=== PATIENT | female | born 1975 | race Caucasian/White ===

== ENCOUNTER 2018-02-25 14:14 | Inpatient (IN) ==
--- NOTE | 2018-02-25 14:32 | Emergency Department Note ---
Disposition Clinical Impression: Suicidal ideation, History of anxiety, History of depression, History of schizoaffective disorder Disposition: Admitted As Inpatient Condition: Good Time of Disposition: 15:49 (Admitted to 1A) Psych HPI - General Chief Complaint: UC Psych Stated Complaint: SI Time Seen by Provider: 02/25/18 14:14 Source: patient, EMS Mode of arrival: ambulatory Limitations: no limitations Nursing Notes Reviewed: Yes Vital Signs Reviewed: Yes - History of Present Illness HPI Narrative: Patient is a 42-year-old female with past medical history of COPD, CHF, obesity , asthma, anxiety, depression, schizoaffective disorder. She is currently taking BuSpar 50 mg 3 times a day, Valium 5 mg 3 times a day, Prozac 80 mg daily , Wellbutrin 150 twice daily, Topamax 50 mg once in the morning and and 2 tablets at night, Geodon 80 mg twice daily, lisinopril 10 mg daily. She used to be on lithium but states that she was taken off this a while ago. She presents today via EMS due to concern for suicidal ideation with a plan to overdose on her medications and/or cut herself. She does have a history of multiple admissions in the past due to suicidal ideation. She was sent from psychiatrist office, Dr. Recio. She came with a pink slip signed, statement of believe was "patient has worsening depressive symptoms not caring for self, reports planned to overdose on anxiety meds" this was signed on 02/25/18 at 1: 28pm the patient also admits to a generalized headache that she believes is due to her blood pressure being a little high. She denies any other numbness, tingling, weakness, slurring of speech, facial droop, chest pain, shortness breath, nausea, vomiting, fevers, diarrhea, abdominal pain. She does state that she has headaches occasionally when her blood pressure is high. Denies any other homicidal ideation, visual or auditory hallucinations, actual taking of any large amounts of medications, overdosing on any other drugs like Tylenol , aspirin; denies any ingestions of any illicit drugs, any actual self-harm prior to coming in. - Related Data Home Medications Medication Instructions Recorded Confirmed BuPROPion SR (12 HR) [Wellbutrin 300 mg PO DAILY 02/22/16 02/25/18 SR] FLUoxetine HCl [Prozac] 80 mg PO DAILY 02/22/16 02/25/18 diazePAM [Valium] 5 mg PO TID PRN 01/06/18 02/25/18 Buspirone HCl [Buspar] 15 mg PO TID 02/25/18 02/25/18 Doxepin [Sinequan] 25 - 50 mg PO HS 02/25/18 02/25/18 Pantoprazole Sodium [Protonix] 40 mg PO DAILY 02/25/18 02/25/18 Ziprasidone HCl [Geodon] 80 mg PO BID 02/25/18 02/25/18 amLODIPine [Norvasc] 5 mg PO DAILY 02/25/18 02/25/18 carBAMazepine [Tegretol] 200 mg PO BID 02/25/18 02/25/18 Allergies Allergy/AdvReac Type Severity Reaction Status Date / Time Amoxicillin [From Augmentin] AdvReac Hives Verified 02/25/18 14:42 clavulanic acid AdvReac Hives Verified 02/25/18 14:42 NSAIDS (Non-Steroidal AdvReac See Verified 02/25/18 14:42 Anti-Inflamma Comments beta-lactam Allergy See Uncoded 02/25/18 14:42 Comments All systems ED: reviewed and negative except as stated. Constitutional: Denies: fever Cardiovascular: Denies: chest pain Respiratory: Denies: cough, dyspnea, sputum production Gastrointestinal: Denies: abdominal pain, nausea, vomiting, diarrhea Genitourinary: Denies: urgency, dysuria Integumentary: Denies: rash Neurological: Reports: headache. Denies: weakness, numbness, paresthesias Psychiatric: Reports: anxiety, depression, suicidal thoughts. Denies: homicidal thoughts, auditory hallucinations, visual hallucinations Past Medical History - Past Medical History Attestation: Yes The following information was validated with the patient. 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 - Social History Smoking Status: Never smoker Smokeless Tobacco Status: Yes (vape) Alcohol use: Reports: none Drug use: Reports: none Physical Exam - General Limitations: no limitations General appearance: alert, in no apparent distress - Head Head exam: atraumatic, normocephalic, normal inspection - Eye Eye exam: Present: normal appearance, PERRL, EOMI - ENT ENT exam: normal exam, normal oropharynx, mucous membranes moist - Neck Neck exam: Present: normal inspection, full ROM, trachea midline - Chest Chest inspection: Present: normal inspection, symmetric chest wall rise - Respiratory Respiratory exam: Present: normal lung sounds bilaterally - Cardiovascular Cardiovascular exam: Present: regular rate, normal rhythm, normal heart sounds - Abdominal Exam Abdominal exam: Present: soft, Non-Tender. Absent: tenderness, distention, guarding, rebound, rigidity - Extremities Exam Extremities exam: Present: normal inspection, full ROM. Absent: tenderness, pedal edema - Neurological Exam Neurological exam: Present: alert, oriented X3, CN II-XII intact. Absent: motor sensory deficit - Expanded Neurological Exam Patient oriented to: Present: person, place, time Speech: Present: fluid speech Cranial nerves: EOM function (II, III, IV, ): Normal, facial sensation (V): Normal, facial palsy (VII): Normal, spinal accessory function (XI): Normal, tongue deviation (XII): Normal Cerebellar function: finger to nose: Normal Motor strength - LUE: 5/5 Motor strength - RUE: 5/5 Motor strength - LLE: 5/5 Motor strength - RLE: 5/5 Sensory exam upper extremity: light touch: Normal Sensory exam lower extremity: light touch: Normal Coma Scale Eye Opening: Spontaneous Coma Scale Motor Response: Obeys Commands Coma Scale Verbal Response: Oriented Coma Scale Total: 15 - Psychiatric Psychiatric exam: Present: depressed, anxious, flat affect - Skin Skin exam: Present: warm, dry, intact, normal color Course Course Narrative: Patient mildly hypertensive on presentation with systolic in the 150s. No focal neuro deficits. The rest of the exam is fairly benign. Patient does have active suicidal thoughts with a plan. She really has a pink slip signed and on the chart by her psychiatrist Dr. Recio. She will be assigned a sitter. Medical clearance labs ordered. After this, will consult behavioral health for further evaluation. 15:47 no major lab abnormalities. Urine drug screen was positive for benzos and barbiturates. Patient is not currently prescribed for barbiturate. Otherwise, the rest of the labs were not concerning. I talked with behavioral health, they were already aware of the patient and will directly admit her without evaluation due to the patient coming directly from psychiatrist office. Vital Signs Pulse Rate 59 02/25/18 14:42 Respiratory Rate 20 02/25/18 14:42 Blood Pressure 167/106 02/25/18 14:42 O2 Sat by Pulse Oximetry 98 02/25/18 14:42 Temperature 98.5 F 02/25/18 14:46 Pulse Rate 59 02/25/18 14:46 Respiratory Rate 20 02/25/18 14:46 Blood Pressure 167/106 02/25/18 14:46 O2 Sat by Pulse Oximetry 98 02/25/18 14:46 Oxygen Delivery Oxygen Delivery Room Air Psych - MDM Narrative Medical decision making narrative: Patient mildly hypertensive on presentation with systolic in the 150s. No focal neuro deficits. The rest of the exam is fairly benign. Patient does have active suicidal thoughts with a plan. She really has a pink slip signed and on the chart by her psychiatrist Dr. Recio. She will be assigned a sitter. Medical clearance labs ordered. After this, will consult behavioral health for further evaluation. 15:47 no major lab abnormalities. Urine drug screen was positive for benzos and barbiturates. Patient is not currently prescribed for barbiturate. Otherwise, the rest of the labs were not concerning. I talked with behavioral health, they were already aware of the patient and will directly admit her without evaluation due to the patient coming directly from psychiatrist office. - Lab Data Result diagrams: 02/25/18 14:59 02/25/18 14:59 Lab Results 02/25/18 02/25/18 02/25/18 Range/Units 14:42 14:45 14:59 WBC 5.3 (4.3-11.1) K/mcL RBC 3.89 (3.82-4.97) M/mcL Hgb 11.8 (11.5-15.4) g/dL Hct 34.3 L (35.3-44.9) % MCV 88.2 (83.0-100.0) fL MCH 30.3 (28.0-33.3) pg MCHC 34.4 (31.6-35.5) g/dL RDW 13.2 (11.5-14.5) % Plt Count 201 (140-400) K/mcL MPV 9.9 (9.4-12.4) fL Immature Gran % 0.2 (0-4) % Seg Neutrophils % 69.9 % Lymphocytes % 24.2 % Monocytes % 5.5 % Eosinophils % 0.0 % Basophils % 0.2 % Neutrophils # 3.7 (1.6-8.9) K/mcL Lymphocytes # 1.3 (0.6-4.6) K/mcL Monocytes # 0.3 (0.0-1.3) K/mcL Eosinophils # 0.0 (0.0-0.6) K/mcL Basophils # 0.0 (0.0-0.2) K/mcL Sodium (136-145) mEq/L Potassium (3.5-5.1) mEq/L Chloride (98-107) mEq/L Carbon Dioxide (23-29) mEq/L BUN (6-20) mg/dL Creatinine (0.60-1.20) mg/dL Est GFR ( Amer) (> 60) Est GFR (Non-Af Amer) (> 60) BUN/Creatinine Ratio (6-26) Glucose (70-105) mg/dL Calculated Osmolality (280-300) Calcium (8.6-10.3) mg/dL Urine Color Yellow (Yellow) Urine Clarity Clear (Clear) Urine pH 6.5 (5.0-8.0) pH Units Ur Specific [place] 1.009 L (1.010-1.025) Urine Protein Negative (Neg-Trace) mg/dL Urine Glucose (UA) Normal (Normal) mg/dL Urine Ketones Negative (Negative) mg/dL Urine Blood Negative (Negative) Urine Nitrite Negative (Negative) Urine Bilirubin Negative (Negative) Urine Urobilinogen Normal (Normal) mg/dL Ur Leukocyte Esterase Negative (Negative) Salicylates (15.0-30.0) mg/dL Urine Opiates Screen Negative (Vhneyk=845) ng/mL Acetaminophen (10-20) mcg/mL Ur Barbiturates Screen Positive H (Smrahq=013) ng/mL Ur Phencyclidine Scrn Negative (Cutoff=25) ng/mL Ur Amphetamines Screen Negative (Akczhp=3917) ng/mL U Benzodiazepines Scrn Positive H (Glvcpb=902) ng/mL Urine Cocaine Screen Negative (Cutoff= 300) ng/mL U Marijuana (THC) Screen Negative (Cutoff = 50) ng/mL Ur Drug Screen Interp See Below Ethyl Alcohol (Less than 10) mg/dL 02/25/18 Range/Units 14:59 WBC (4.3-11.1) K/mcL RBC (3.82-4.97) M/mcL Hgb (11.5-15.4) g/dL Hct (35.3-44.9) % MCV (83.0-100.0) fL MCH (28.0-33.3) pg MCHC (31.6-35.5) g/dL RDW (11.5-14.5) % Plt Count (140-400) K/mcL MPV (9.4-12.4) fL Immature Gran % (0-4) % Seg Neutrophils % % Lymphocytes % % Monocytes % % Eosinophils % % Basophils % % Neutrophils # (1.6-8.9) K/mcL Lymphocytes # (0.6-4.6) K/mcL Monocytes # (0.0-1.3) K/mcL Eosinophils # (0.0-0.6) K/mcL Basophils # (0.0-0.2) K/mcL Sodium 137 (136-145) mEq/L Potassium 4.0 (3.5-5.1) mEq/L Chloride 104 (98-107) mEq/L Carbon Dioxide 29 (23-29) mEq/L BUN 10 (6-20) mg/dL Creatinine 1.03 (0.60-1.20) mg/dL Est GFR ( Amer) > 60 (> 60) Est GFR (Non-Af Amer) 59 L (> 60) BUN/Creatinine Ratio 10 (6-26) Glucose 110 H (70-105) mg/dL Calculated Osmolality 284 (280-300) Calcium 9.1 (8.6-10.3) mg/dL Urine Color (Yellow) Urine Clarity (Clear) Urine pH (5.0-8.0) pH Units Ur Specific [place] (1.010-1.025) Urine Protein (Neg-Trace) mg/dL Urine Glucose (UA) (Normal) mg/dL Urine Ketones (Negative) mg/dL Urine Blood (Negative) Urine Nitrite (Negative) Urine Bilirubin (Negative) Urine Urobilinogen (Normal) mg/dL Ur Leukocyte Esterase (Negative) Salicylates < 2.5 L (15.0-30.0) mg/dL Urine Opiates Screen (Jtqctl=486) ng/mL Acetaminophen < 10 L (10-20) mcg/mL Ur Barbiturates Screen (Jfeoay=651) ng/mL Ur Phencyclidine Scrn (Cutoff=25) ng/mL Ur Amphetamines Screen (Vtliro=9112) ng/mL U Benzodiazepines Scrn (Fyuogo=905) ng/mL Urine Cocaine Screen (Cutoff= 300) ng/mL U Marijuana (THC) Screen (Cutoff = 50) ng/mL Ur Drug Screen Interp Ethyl Alcohol < 10 (Less than 10) mg/dL Psychiatric Medical Clearance - Medical Clearance Checklist Medical History: No Social History Section defined Current Vitals: Last Vital Signs Temp 98.5 F 02/25/18 14:46 Pulse 59 02/25/18 14:46 Resp 20 02/25/18 14:46 BP 167/106 02/25/18 14:46 Pulse Ox 98 02/25/18 14:46 Psychiatric Lab Panel: Drug Levels and Toxicity 02/25/18 02/25/18 14:45 14:59 Urine Opiates Screen Negative Acetaminophen < 10 L Ur Barbiturates Screen Positive H Ur Phencyclidine Scrn Negative Ur Amphetamines Screen Negative U Benzodiazepines Scrn Positive H Urine Cocaine Screen Negative U Marijuana (THC) Screen Negative Ethyl Alcohol < 10 Abnormal Labs: Abnormal lab results Hct 34.3 % (35.3-44.9) L 02/25/18 14:59 Est GFR (Non-Af Amer) 59 (> 60) L 02/25/18 14:59 Glucose 110 mg/dL (70-105) H 02/25/18 14:59 Ur Specific [place] 1.009 (1.010-1.025) L 02/25/18 14:42 Salicylates < 2.5 mg/dL (15.0-30.0) L 02/25/18 14:59 Acetaminophen < 10 mcg/mL (10-20) L 02/25/18 14:59 Ur Barbiturates Screen Positive ng/mL (Obulcq=064) H 02/25/18 14:45 U Benzodiazepines Scrn Positive ng/mL (Wdtugs=452) H 02/25/18 14:45 Attestation Statement - Attestation Attestation: I examined this patient and my medical decision-making was reviewed with the Resident Physician. I agree with the documented findings, disposition and treatment plan as described except to the extent set forth below. Findings consistent with ongoing depression and possible suicidality. We will admit for psychiatric consultation. The patient was a direct admission other referral psychiatry.
[2018-02-25 14:51] LABS: Bilirubin,Urine Negative (Negative); Blood,Urine Negative (Negative); Clarity,Urine Clear (Clear); Color,Urine Yellow (Yellow); Glucose,Urine (UA) Normal (Normal); Ketones,Urine Negative (Negative); Leukocyte Esterase,Urine Negative (Negative); Nitrite,Urine Negative (Negative); PH,Urine 6.5 pH Units (5.0-8.0); Protein,Urine Negative (Neg-Trace); Specific Gravity,Urine 1.009 (1.010-1.025); Urobilinogen,Urine Normal (Normal)
[2018-02-25 15:01] LABS: Amphetamine Screen,Urine Negative ng/mL (Cutoff=1000); Barbiturate Screen,Urine Positive ng/mL (Cutoff=200); Benzodiazepines Screen,Urine Positive ng/mL (Cutoff=200); Cannabinoid Screen,Urine Negative ng/mL (Cutoff = 50); Cocaine Screen,Urine Negative ng/mL (Cutoff= 300); Opiate Screen,Urine Negative ng/mL (Cutoff=300); Phencyclidine Screen,Urine Negative ng/mL (Cutoff=25)
[2018-02-25 15:16] LABS: Basophils % 0.2 %; Hematocrit 34.3 % (35.3-44.9); Hemoglobin 11.8 g/dL (11.5-15.4); Immature Granulocytes % 0.2 % (0-4); Lymphocytes # 1.3 K/mcL (0.6-4.6); Lymphocytes % 24.2 %; Mean Corpuscular HGB Conc 34.4 g/dL (31.6-35.5); Mean Corpuscular Hemoglobin 30.3 pg (28.0-33.3); Mean Corpuscular Volume 88.2 fL (83.0-100.0); Mean Platelet Volume 9.9 fL (9.4-12.4); Monocytes # 0.3 K/mcL (0.0-1.3); Monocytes % 5.5 %; Neutrophils # 3.7 K/mcL (1.6-8.9); Platelet Count 201 K/mcL (140-400); Red Blood Count 3.89 M/mcL (3.82-4.97); Red Cell Distribution Width 13.2 % (11.5-14.5); Segmented Neutrophils % 69.9 %
[2018-02-25 15:40] LABS: Acetaminophen < 10 mcg/mL (10-20); BUN/Creatinine Ratio 10 (6-26); Blood Urea Nitrogen 10 mg/dL (6-20); Calcium 9.1 mg/dL (8.6-10.3); Carbon Dioxide 29 mEq/L (23-29); Chloride 104 mEq/L (98-107); Ethanol < 10 mg/dL (Less than 10); Glucose 110 mg/dL (70-105); Osmolality,Calculated 284 (280-300); Salicylate < 2.5 mg/dL (15.0-30.0); Sodium 137 mEq/L (136-145); eGFR For Non-African Americans 59 (> 60)
[2018-02-25] MEDS ORDERED: Haloperidol Lactate 5 MG/ML VIAL IM PRN (17:27)
[2018-02-25] MEDS ORDERED: Mag Hydrox/Al Hydrox/Simeth 30 ML UDC PO PRN (17:27)
[2018-02-25] MEDS ORDERED: MOM Conc 10 ML UD.LIQ PO PRN (17:27)
[2018-02-25] MEDS ORDERED: *HR* LORazepam 2 MG/ML VIAL IM PRN (17:27)
[2018-02-25] MEDS ORDERED: *HR* LORazepam 1 MG TABLET PO PRN (17:27)
[2018-02-25] MEDS ORDERED: diazePAM 5 MG TABLET PO PRN (17:31)
[2018-02-25] MEDS: Acetaminophen 325 MG TABLET PO PRN (20:59)
[2018-02-25] MEDS: Ziprasidone 80 MG CAPSULE PO SCH (21:01)
[2018-02-25] MEDS: traZODone 50 MG TABLET PO PRN (21:04)
[2018-02-25] MEDS: carBAMazepine 200 MG TABLET PO SCH (21:14)
[2018-02-26] MEDS: Ziprasidone 80 MG CAPSULE PO SCH ×2 (08:30→21:36)
[2018-02-26] MEDS: amLODIPine 5 MG TABLET PO SCH (08:30)
[2018-02-26] MEDS: Nicotine 7 MG PATCH.TD24 TD SCH (08:31)
[2018-02-26] MEDS: carBAMazepine 200 MG TABLET PO SCH ×2 (08:33→21:37)
[2018-02-26] MEDS ORDERED: BuPROPion SR (12 HR) 150 MG TABLET PO SCH (09:00)
[2018-02-26] MEDS ORDERED: FLUoxetine 20 MG CAPSULE PO SCH (09:00)
[2018-02-26] MEDS: hydrOXYzine pamoate 25 MG CAPSULE PO PRN ×2 (09:01→21:55)
--- NOTE | 2018-02-26 11:59 | Psychiatry History & Physical ---
Date of Encounter: 02/26/18 Time of Encounter: 11:45 History of Present Illness Patient Stated Chief Complaint: Suicidal ideation Medicare Admission Attestation: For traditional Medicare patients the provided hospital inpatient services are reasonable and necessary and in the case of services not specified as inpatient -only under 42 CFR 419.22 (n), that they are appropriately provided as inpatient services in accordance 42 CFR 412.3. For Critical Access Hospital the patient may reasonably be expected to be discharged or transferred to a hospital within 96 hours after admission to the Critical Access Hospital. Admitted From: Emergency Dept History of Present Illness: Ms. Palma is a 42 year old female admitted from the emergency department for evaluation of suicidal ideation. Patient was referred for admission by Dr. De Jesus reported patient is having worsening depression and suicidal ideation had a long history of schizoaffective disorder bipolar type multiple medication recently had multiple changes to her medication including trial of lithium that could not be given due to kidney function. Patient also was given Tegretol and she did not tolerated. Patient is on polypharmacy and has been having hypersomnia low energy depressed mood lack of energy and poor motivation. 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 Patient admits to smoking cigarettes and consuming large amounts of caffeine denies any use of alcohol or drugs. Patient complained of mood swings irritability. Past Med Surg Social Fam HX - Past Medical History Medical history: non-contributory - Past Psychiatric History Psychiatric history: Reports: bipolar, depression, prior suicide attempt, previous psychiatric hospitalization Past psychiatric history details: Multiple hospitalizations at [facility] 1 a - Past Surgical History Surgical History: cholecystectomy, knee replacement - Social History Smoking Status: Never smoker Smokeless Tobacco Status: Yes (vape) Alcohol use: none Drug use: none - Family History Maternal Grandmother Living Status: Hx Family Cardiac Disorders: Yes Medications & Allergies BuPROPion SR (12 HR) [Wellbutrin SR] 300 mg PO DAILY 02/22/16 [History] FLUoxetine HCl [Prozac] 80 mg PO DAILY 02/22/16 [History] diazePAM [Valium] 5 mg PO TID PRN 01/06/18 [History] Buspirone HCl [Buspar] 15 mg PO TID 02/25/18 [History] Doxepin [Sinequan] 25 - 50 mg PO HS 02/25/18 [History] Pantoprazole Sodium [Protonix] 40 mg PO DAILY 02/25/18 [History] Ziprasidone HCl [Geodon] 80 mg PO BID 02/25/18 [History] amLODIPine [Norvasc] 5 mg PO DAILY 02/25/18 [History] carBAMazepine [Tegretol] 200 mg PO BID 02/25/18 [History] 3 Allergy/AdvReac Type Severity Reaction Status Date / Time Amoxicillin [From Augmentin] AdvReac Hives Verified 02/25/18 14:42 clavulanic acid AdvReac Hives Verified 02/25/18 14:42 NSAIDS (Non-Steroidal AdvReac See Verified 02/25/18 14:42 Anti-Inflamma Comments beta-lactam Allergy See Uncoded 02/25/18 14:42 Comments Review of Systems Psychiatric: Reports: depression, anxiety, abnormal sleep pattern, suicidal ideation, hopelessness, mood swings Exam - HEENT Head exam IM: Present: atraumatic Eye exam IM: Present: EOMI, normal appearance, PERRL ENT exam IM: Present: normal exam - Neurological Neurological exam: Present: CN II-XII intact - Respiratory Respiratory exam IM: Present: CTAB - GI/Abdominal GI/Abdominal exam IM: Present: normal bowel sounds, soft. Absent: tenderness - Extremities Extremities exam IM: Present: full ROM - Skin Skin exam IM: Present: dry, warm - Constitutional Vitals: Temp Pulse Resp BP Pulse Ox 98.8 F 99 16 143/94 98 02/26/18 09:00 02/26/18 09:00 02/26/18 09:00 02/26/18 09:00 02/25/18 14:46 General appearance: age & developmentally appropriate, well-groomed, well- nourished, obese - Musculoskeletal Gait: normal Station: relaxed Strength & Tone: normal for patient - Psychiatric Patient Orientation: Yes Person, Yes Time, Yes Place Level of alertness: Alert Behavior: calm, cooperative, guarded Psychomotor activity: Normal Eye Contact: Maintains Eye Contact Mood Description: Euthymic/stable, Depressed, Anxious Affect description: congruent with mood, full range, constricted Speech Volume: Normal Speech pattern: normal rate, normal rhythm, normal tone, fluent, spontaneous Language & Vocabulary: consistent with education Thought Process: Linear, Goal Oriented Thought Content: Yes Suicidal ideation, No Homicidal ideation, No Overt delusions Perceptual Disturbances: No Auditory hallucinations, No Visual hallucinations Attention Span Ability: Capable of Focused Attention Memory Description: Grossly Intact Patient Reliability: Reliable Historian Fund of knowledge: Yes abstraction ability, Yes average, Yes aware of current events Intelligence Estimate: Average Judgment: Limited Insight: Partial Results - Labs Labs: Laboratory Last Values WBC 5.3 K/mcL (4.3-11.1) 02/25/18 14:59 RBC 3.89 M/mcL (3.82-4.97) 02/25/18 14:59 Hgb 11.8 g/dL (11.5-15.4) 02/25/18 14:59 Hct 34.3 % (35.3-44.9) L 02/25/18 14:59 MCV 88.2 fL (83.0-100.0) 02/25/18 14:59 MCH 30.3 pg (28.0-33.3) 02/25/18 14:59 MCHC 34.4 g/dL (31.6-35.5) 02/25/18 14:59 RDW 13.2 % (11.5-14.5) 02/25/18 14:59 Plt Count 201 K/mcL (140-400) 02/25/18 14:59 MPV 9.9 fL (9.4-12.4) 02/25/18 14:59 Immature Gran % 0.2 % (0-4) 02/25/18 14:59 Seg Neutrophils % 69.9 % 02/25/18 14:59 Lymphocytes % 24.2 % 02/25/18 14:59 Monocytes % 5.5 % 02/25/18 14:59 Eosinophils % 0.0 % 02/25/18 14:59 Basophils % 0.2 % 02/25/18 14:59 Neutrophils # 3.7 K/mcL (1.6-8.9) 02/25/18 14:59 Lymphocytes # 1.3 K/mcL (0.6-4.6) 02/25/18 14:59 Monocytes # 0.3 K/mcL (0.0-1.3) 02/25/18 14:59 Eosinophils # 0.0 K/mcL (0.0-0.6) 02/25/18 14:59 Basophils # 0.0 K/mcL (0.0-0.2) 02/25/18 14:59 Sodium 137 mEq/L (136-145) 02/25/18 14:59 Potassium 4.0 mEq/L (3.5-5.1) 02/25/18 14:59 Chloride 104 mEq/L (98-107) 02/25/18 14:59 Carbon Dioxide 29 mEq/L (23-29) 02/25/18 14:59 BUN 10 mg/dL (6-20) 02/25/18 14:59 Creatinine 1.03 mg/dL (0.60-1.20) 02/25/18 14:59 Est GFR ( Amer) > 60 (> 60) 02/25/18 14:59 Est GFR (Non-Af Amer) 59 (> 60) L 02/25/18 14:59 BUN/Creatinine Ratio 10 (6-26) 02/25/18 14:59 Glucose 110 mg/dL (70-105) H 02/25/18 14:59 Calculated Osmolality 284 (280-300) 02/25/18 14:59 Calcium 9.1 mg/dL (8.6-10.3) 02/25/18 14:59 Urine Color Yellow (Yellow) 02/25/18 14:42 Urine Clarity Clear (Clear) 02/25/18 14:42 Urine pH 6.5 pH Units (5.0-8.0) 02/25/18 14:42 Ur Specific [place] 1.009 (1.010-1.025) L 02/25/18 14:42 Urine Protein Negative mg/dL (Neg-Trace) 02/25/18 14:42 Urine Glucose (UA) Normal mg/dL (Normal) 02/25/18 14:42 Urine Ketones Negative mg/dL (Negative) 02/25/18 14:42 Urine Blood Negative (Negative) 02/25/18 14:42 Urine Nitrite Negative (Negative) 02/25/18 14:42 Urine Bilirubin Negative (Negative) 02/25/18 14:42 Urine Urobilinogen Normal mg/dL (Normal) 02/25/18 14:42 Ur Leukocyte Esterase Negative (Negative) 02/25/18 14:42 Salicylates < 2.5 mg/dL (15.0-30.0) L 02/25/18 14:59 Urine Opiates Screen Negative ng/mL (Ushcvz=050) 02/25/18 14:45 Acetaminophen < 10 mcg/mL (10-20) L 02/25/18 14:59 Ur Barbiturates Screen Positive ng/mL (Ysleoz=927) H 02/25/18 14:45 Ur Phencyclidine Scrn Negative ng/mL (Cutoff=25) 02/25/18 14:45 Ur Amphetamines Screen Negative ng/mL (Hmmhgc=6794) 02/25/18 14:45 U Benzodiazepines Scrn Positive ng/mL (Jsauto=669) H 02/25/18 14:45 Urine Cocaine Screen Negative ng/mL (Cutoff= 300) 02/25/18 14:45 U Marijuana (THC) Screen Negative ng/mL (Cutoff = 50) 02/25/18 14:45 Ur Drug Screen Interp See Below 02/25/18 14:45 Ethyl Alcohol < 10 mg/dL (Less than 10) 02/25/18 14:59 Assessment and Plan (1) Schizoaffective disorder, bipolar type Current visit: Yes Status: Acute Plan: Admit inpatient for safety and stabilization, Close observation, Suicide Precautions per unit protocol, Encourage participation in unit milieu, Group Therapy, Monitor sleep, Monitor appetite Additional Plan: Please see orders for medication changes. We will add Cymbalta 60 mg daily, will reduce Prozac to 40 mg daily will reduce Wellbutrin to 150 mg daily. Will change Valium and doxepin to when necessary Medication changes discussed was a patient and she is agreeable to treatment plan and we will continue to monitor. Risks, benefits, side effects, alternatives discussed w/pt: Yes Patient agreeable to treatment: Yes Estimated Length of Stay (Days): 7
[2018-02-26 12:46] LABS: Thyroid Stimulating Hormone 1.453 mcIU/mL (0.340-5.600)
[2018-02-26] MEDS: traZODone 50 MG TABLET PO PRN (21:55)
[2018-02-27] MEDS: amLODIPine 5 MG TABLET PO SCH (09:32)
[2018-02-27] MEDS: carBAMazepine 200 MG TABLET PO SCH (09:33)
[2018-02-27] MEDS: FLUoxetine 20 MG CAPSULE PO SCH (09:33)
[2018-02-27] MEDS: Ziprasidone 80 MG CAPSULE PO SCH ×2 (09:34→20:55)
[2018-02-27] MEDS: Nicotine 7 MG PATCH.TD24 TD SCH (09:34)
[2018-02-27] MEDS: BuPROPion SR (12 HR) 150 MG TABLET PO SCH (09:34)
--- NOTE | 2018-02-27 15:49 | Psychiatry Progress Note ---
Date of Encounter: 02/27/18 Time of Encounter: 13:30 Subjective Interval history: Patient seen for follow-up. Case discussed was nursing staff. Patient reports improved sleep and more, she feel less depressed and less anxious. She feels happier. Denied any side effects of medication changes. She denies suicidal ideation. She was educated about medication choices and interactions. Review of Systems Psychiatric: Reports: depression, anxiety, abnormal sleep pattern, suicidal ideation, hopelessness, mood swings Results - Vital Signs Vital Signs: Temp Pulse Resp BP Pulse Ox 97.1 F L 96 18 140/108 98 02/27/18 09:00 02/27/18 09:00 02/27/18 09:00 02/27/18 09:00 02/25/18 14:46 Assessment and Plan (1) Schizoaffective disorder, bipolar type Current visit: Yes Status: Acute Plan: Continue hospitalization, Close observation, Suicide Precautions per unit protocol, Encourage participation in unit milieu, Group Therapy, Monitor sleep, Monitor appetite Risks, benefits, side effects, alternatives discussed w/pt: Yes Patient agreeable to treatment: Yes Consult Discharge Plan - Plan Referrals: [facility] [Outside] - 03/10/18 10:20 am (The above appointment is with Dr. Recio for outpatient psychiatric assessment and medication management services. You will also see Glenda Vail for outpatient mental health counseling services on 03/11/2018 at 10:00 AM. Please arrive 10 minutes early to all appointments to complete the check-in process. Please bring your insurance card and photo ID. If you are unable to keep any scheduled appointment, 24 hour business notice of cancellation is expected. The above appointment(s) reflects first availability. You may contact the office regularly to check for cancellations that may allow you to be seen sooner. ) Psychiatry Exam - Constitutional Vitals: Temp Pulse Resp BP Pulse Ox 97.1 F L 96 18 140/108 98 02/27/18 09:00 02/27/18 09:00 02/27/18 09:00 02/27/18 09:00 02/25/18 14:46 General appearance: age & developmentally appropriate, well-groomed, well- nourished, obese - Musculoskeletal Gait: normal Station: relaxed Strength & Tone: normal for patient - Psychiatric Patient Orientation: Yes Person, Yes Time, Yes Place Level of alertness: Alert Behavior: calm, cooperative Psychomotor activity: Normal Eye Contact: Maintains Eye Contact Mood Description: Euthymic/stable Affect description: congruent with mood, full range, euthymic Speech Volume: Normal Speech pattern: normal rate, normal rhythm, normal tone, fluent, spontaneous Language & Vocabulary: consistent with education Thought Process: Linear, Goal Oriented Thought Content: No Suicidal ideation, No Homicidal ideation, No Overt delusions Perceptual Disturbances: No Auditory hallucinations, No Visual hallucinations Attention Span Ability: Capable of Focused Attention Memory Description: Grossly Intact Patient Reliability: Reliable Historian Fund of knowledge: Yes abstraction ability, Yes aware of current events Intelligence Estimate: Average Judgment: Limited Insight: Partial
[2018-02-27] MEDS: Acetaminophen 325 MG TABLET PO PRN ×2 (16:12→22:18)
[2018-02-27] MEDS: traZODone 50 MG TABLET PO PRN (20:55)
[2018-02-27] MEDS: hydrOXYzine pamoate 25 MG CAPSULE PO PRN (20:55)
[2018-02-28 08:39] VITALS: BP 128/98
[2018-02-28] MEDS: Ziprasidone 80 MG CAPSULE PO SCH (09:10)
[2018-02-28] MEDS: BuPROPion SR (12 HR) 150 MG TABLET PO SCH (09:11)
[2018-02-28] MEDS: amLODIPine 5 MG TABLET PO SCH (09:12)
[2018-02-28] MEDS: FLUoxetine 20 MG CAPSULE PO SCH (09:12)
[2018-02-28] MEDS: Nicotine 7 MG PATCH.TD24 TD SCH (09:40)
--- NOTE | 2018-02-28 10:22 | Discharge Summary ---
Date of Encounter: 02/28/18 Time of Encounter: 10:17 Diagnosis - Discharge Diagnosis (1) Schizoaffective disorder, bipolar type Status: Acute Medications - Discharge Medications Prescriptions: DULoxetine [Cymbalta] 60 mg PO DAILY #60 capsule. diazePAM [Valium] 5 mg PO TID PRN 01/06/18 [History] Buspirone HCl [Buspar] 15 mg PO TID 02/25/18 [History] Doxepin [Sinequan] 25 - 50 mg PO HS 02/25/18 [History] Pantoprazole Sodium [Protonix] 40 mg PO DAILY 02/25/18 [History] Ziprasidone HCl [Geodon] 80 mg PO BID 02/25/18 [History] amLODIPine [Norvasc] 5 mg PO DAILY 02/25/18 [History] BuPROPion SR (12 HR) [Wellbutrin SR] 150 mg PO DAILY tablet.er 02/28/18 [Rx] DULoxetine [Cymbalta] 60 mg PO DAILY #60 capsule. 02/28/18 [Rx] FLUoxetine HCl [Prozac] 40 mg PO DAILY capsule 02/28/18 [Rx] 3 Allergy/AdvReac Type Severity Reaction Status Date / Time Amoxicillin [From Augmentin] AdvReac Hives Verified 02/25/18 14:42 clavulanic acid AdvReac Hives Verified 02/25/18 14:42 NSAIDS (Non-Steroidal AdvReac See Verified 02/25/18 14:42 Anti-Inflamma Comments beta-lactam Allergy See Uncoded 02/25/18 14:42 Comments Provider Date of admission: 02/25/18 16:12 Primary care physician: PCP NONE Discharging clinician: Curt Hanson Psychiatry Exam - Constitutional Vitals: Temp Pulse Resp BP Pulse Ox 98.5 F 80 18 128/98 98 02/28/18 08:39 02/28/18 08:39 02/28/18 08:39 02/28/18 08:39 02/25/18 14:46 General appearance: age & developmentally appropriate, well-groomed, well- nourished, obese - Musculoskeletal Gait: normal Station: relaxed Strength & Tone: normal for patient - Psychiatric Patient Orientation: Yes Person, Yes Time, Yes Place Level of alertness: Alert Behavior: calm, cooperative Psychomotor activity: Normal Eye Contact: Maintains Eye Contact Mood Description: Euthymic/stable Affect description: congruent with mood, full range Speech Volume: Normal Speech pattern: normal rate, normal rhythm, normal tone, fluent, spontaneous Language & Vocabulary: consistent with education Thought Process: Linear, Goal Oriented Thought Content: No Suicidal ideation, No Homicidal ideation, No Overt delusions Perceptual Disturbances: No Auditory hallucinations, No Visual hallucinations Attention Span Ability: Capable of Focused Attention Memory Description: Grossly Intact Patient Reliability: Reliable Historian Fund of knowledge: Yes abstraction ability, Yes aware of current events Intelligence Estimate: Average Judgment: Limited Insight: Partial Hospital Course Hospital course: Ms. Palma is a 42 year old female admitted from the emergency department for suicidal ideation and poor adjustments of her medication for bipolar disorder. For details admission please see H&P On the units patient medication were reviewed and adjusted we reduced fluoxetine to 40 mg daily, we reduced Wellbutrin 150 mg daily and we added Cymbalta 60 mg daily and we discontinued carbamazepine. Patient tolerated medication changes and reported feeling less depressed her sleep improved she was feeling more energized she attended groups and participated in activities she was medication compliant and denied any side effects of medication. And she denied any suicidal ideation or mood swings. Discharge plans by social service agency director confirmed patient follow-up appointments. On discharge patient was medically stable tolerating medication was out any side effects denied any suicidal ideation or mood swings. She is discharged in stable condition. - Time Spent with Patient Total time spent providing and/or coordinating discharge services: Greater than 30 minutes Assessment and Plan - Patient/Caregiver Discharge Instructions Activity: resume usual activities as tolerated Diet: regular diet - Follow up Plan Follow up with: [facility] [Outside] - 03/10/18 10:20 am (The above appointment is with Dr. Recio for outpatient psychiatric assessment and medication management services. You will also see Glenda Vail for outpatient mental health counseling services on 03/11/2018 at 10:00 AM. Please arrive 10 minutes early to all appointments to complete the check-in process. Please bring your insurance card and photo ID. If you are unable to keep any scheduled appointment, 24 hour business notice of cancellation is expected. The above appointment(s) reflects first availability. You may contact the office regularly to check for cancellations that may allow you to be seen sooner. ) Functional capacity at discharge: independent ambulation Overall status at discharge: Stable Disposition: Home, Self-Care Quality - Multiple Antipsychotics Patient discharged on 2 or more antipsychotic medications: No Procedures - Procedures Procedures: Medication Management, Crisis Stabilization, Supportive Therapy, Group Therapy, Psychoeducational Therapy
== END 2018-02-28 11:58 | disposition home or self-care (01) | DRG 885 ==
LOC: EMEROOARM 14:14 → 1ANU 16:12
PROVIDERS: ADMIT Psychiatry & Neurology Psychiatry; ATTEND Psychiatry & Neurology Psychiatry

== ENCOUNTER 2019-07-10 21:04 | Observation (INO) ==
[2019-07-10] MEDS ORDERED: Isovue-370 500 ML BOTTLE IVP ONE (21:21)
[2019-07-10] MEDS ORDERED: *HR* FentaNYL (PF) 100 MCG/2 ML VIAL IVP ONE (21:24)
[2019-07-10] MEDS ORDERED: Ondansetron 4 MG/2 ML VIAL IVP ONE (21:27)
[2019-07-10 21:35] LABS: Bilirubin,Urine Negative (Negative); Blood,Urine Negative (Negative); Clarity,Urine Cloudy (Clear); Color,Urine Yellow (Yellow); Glucose,Urine (UA) Normal (Normal); Ketones,Urine Negative (Negative); Leukocyte Esterase,Urine Large (Negative); Nitrite,Urine Negative (Negative); Protein,Urine Negative (Neg-Trace); Specific Gravity,Urine 1.009 (1.010-1.025); Urobilinogen,Urine Normal (Normal)
[2019-07-10 21:36] LABS: Bacteria,Urine Few per hpf (None-Few); Hyaline Casts,Urine None Seen per lpf (None-Few); RBC,Urine 0-3 per hpf (0-3); Squamous Epithelial Cell,Urine Many per lpf (None-Few); WBC,Urine 30-50 per hpf (0-3)
[2019-07-10 21:56] LABS: Hematocrit 37.1 % (35.3-44.9); Hemoglobin 12.9 g/dL (11.5-15.4); Mean Corpuscular HGB Conc 34.8 g/dL (31.6-35.5); Mean Corpuscular Hemoglobin 31.5 pg (28.0-33.3); Mean Corpuscular Volume 90.7 fL (83.0-100.0); Mean Platelet Volume 10.5 fL (9.4-12.4); Platelet Count 201 K/mcL (140-400); Red Blood Count 4.09 M/mcL (3.82-4.97); White Blood Count 8.5 K/mcL (4.3-11.1)
[2019-07-10 22:18] LABS: Alanine Aminotransferase 14 Units/L (7-52); Albumin 3.7 g/dL (3.5-5.7); Albumin/Globulin Ratio 1.7 (1.1-2.2); Alkaline Phosphatase 71 Units/L (34-104); Aspartate Amino Transferase 13 Units/L (13-39); BUN/Creatinine Ratio 12 (6-26); Bilirubin,Total 0.2 mg/dL (0.3-1.0); Blood Urea Nitrogen 12 mg/dL (6-20); Calcium 8.6 mg/dL (8.6-10.3); Carbon Dioxide 23 mEq/L (23-29); Chloride 100 mEq/L (98-107); Globulin 2.2 g/dL (2.4-3.5); Glucose 103 mg/dL (70-105); Osmolality,Calculated 272 (280-300); Potassium 4.1 mEq/L (3.5-5.1); Sodium 131 mEq/L (136-145); Total Protein 5.9 g/dL (6.4-8.9); eGFR For African Americans > 60 (> 60); eGFR For Non-African Americans > 60 (> 60)
[2019-07-10 22:19] LABS: Troponin I < 0.03 ng/mL (< 0.04)
[2019-07-10] MEDS ORDERED: Isovue-370 500 ML BOTTLE PO ONE (22:52)
[2019-07-11] MEDS ORDERED: *HR* HYDROmorphone (PF) 1 MG/ML SYRINGE IVP ONE (01:03)
[2019-07-11] MEDS ORDERED: Naloxone 0.4 MG/ML INJ IVP PRN (02:31)
[2019-07-11] MEDS ORDERED: *HR* OxyCODONE/APAP 5/325 TABLET PO PRN (02:33)
[2019-07-11] MEDS ORDERED: 0.9 % Sodium Chloride 1,000 ML IVC SCH (02:45)
[2019-07-11] MEDS ORDERED: diazePAM 10 MG TABLET PO PRN (03:41)
[2019-07-11 06:59] LABS: Hematocrit 39.3 % (35.3-44.9); Hemoglobin 13.4 g/dL (11.5-15.4); Mean Corpuscular HGB Conc 34.1 g/dL (31.6-35.5); Mean Corpuscular Hemoglobin 31.3 pg (28.0-33.3); Mean Corpuscular Volume 91.8 fL (83.0-100.0); Mean Platelet Volume 9.5 fL (9.4-12.4); Platelet Count 245 K/mcL (140-400); Red Blood Count 4.28 M/mcL (3.82-4.97); White Blood Count 6.7 K/mcL (4.3-11.1)
[2019-07-11 07:24] LABS: BUN/Creatinine Ratio 10 (6-26); Blood Urea Nitrogen 9 mg/dL (6-20); Calcium 8.7 mg/dL (8.6-10.3); Carbon Dioxide 25 mEq/L (23-29); Chloride 104 mEq/L (98-107); Glucose 105 mg/dL (70-105); Osmolality,Calculated 281 (280-300); Potassium 4.4 mEq/L (3.5-5.1); Sodium 136 mEq/L (136-145); eGFR For African Americans > 60 (> 60); eGFR For Non-African Americans > 60 (> 60)
[2019-07-11] MEDS: Metoprolol XL (24 HR) Succ 25 MG TAB.ER.24H PO SCH (08:12)
[2019-07-11] MEDS: Furosemide 40 MG TABLET PO SCH ×2 (08:12→19:55)
[2019-07-11] MEDS: Budesonide/Formoterol 160/4.5 1 PUFF INH IH SCH ×2 (11:44→20:58)
[2019-07-11] MEDS ORDERED: ERENUMAB AOOE 70 MG PO SCH (12:30)
[2019-07-11] MEDS ORDERED: Budesonide/Formoterol 80/4.5 1 PUFF INH IH SCH (12:30)
[2019-07-11] MEDS: *HR* OxyCODONE/APAP 5/325 TABLET PO PRN ×2 (13:59→18:18)
[2019-07-11] MEDS: Apixaban 2.5 MG TABLET PO SCH (19:56)
[2019-07-11] MEDS: Baclofen 10 MG TABLET PO SCH (19:57)
[2019-07-11] MEDS ORDERED: traZODone 50 MG TABLET PO SCH (21:00)
[2019-07-11] MEDS ORDERED: Albumin 25% 25gram/100mL 25 GM/100 ML IV.SOLN IVPB ONE (23:07)
[2019-07-12] MEDS: *HR* OxyCODONE/APAP 5/325 TABLET PO PRN ×3 (02:05→10:15)
[2019-07-12 06:29] VITALS: BP 144/85
[2019-07-12 08:11] LABS: Basophils % 0.4 %; Eosinophils # 0.3 K/mcL (0.0-0.6); Eosinophils % 6.5 %; Hematocrit 37.5 % (35.3-44.9); Hemoglobin 12.9 g/dL (11.5-15.4); Immature Granulocytes % 0.4 % (0-4); Lymphocytes # 1.5 K/mcL (0.6-4.6); Lymphocytes % 32.3 %; Mean Corpuscular HGB Conc 34.4 g/dL (31.6-35.5); Mean Corpuscular Hemoglobin 31.4 pg (28.0-33.3); Mean Corpuscular Volume 91.2 fL (83.0-100.0); Mean Platelet Volume 9.9 fL (9.4-12.4); Monocytes # 0.3 K/mcL (0.0-1.3); Neutrophils # 2.5 K/mcL (1.6-8.9); Platelet Count 235 K/mcL (140-400); Red Blood Count 4.11 M/mcL (3.82-4.97); Red Cell Distribution Width 13.1 % (11.5-14.5); Segmented Neutrophils % 54.4 %; White Blood Count 4.6 K/mcL (4.3-11.1)
[2019-07-12] MEDS: Metoprolol XL (24 HR) Succ 25 MG TAB.ER.24H PO SCH (08:11)
[2019-07-12] MEDS: Furosemide 40 MG TABLET PO SCH (08:11)
[2019-07-12] MEDS: Baclofen 10 MG TABLET PO SCH (08:12)
[2019-07-12] MEDS: Apixaban 2.5 MG TABLET PO SCH (08:12)
[2019-07-12] MEDS ORDERED: FLUoxetine 20 MG CAPSULE PO SCH (09:00)
[2019-07-12] MEDS ORDERED: amLODIPine 5 MG TABLET PO SCH (09:00)
[2019-07-12] MEDS: Budesonide/Formoterol 160/4.5 1 PUFF INH IH SCH (10:26)
== END 2019-07-12 12:20 | disposition home or self-care (01) ==
LOC: EMEROOARM 21:04 → 3ANU 21:04 → SUATTDRO 07-11 02:28 → 3ANU 07-11 02:57
PROVIDERS: ADMIT Student in an Organized Health Care Education/Training Program; ATTEND Family Medicine

== ENCOUNTER 2019-07-27 18:57 | Observation (INO) ==
[2019-07-27] MEDS ORDERED: 0.9 % Sodium Chloride 500 ML IVC ONE (19:04)
[2019-07-27] MEDS ORDERED: Isovue-370 500 ML BOTTLE IVP ONE (19:09)
[2019-07-27 20:06] LABS: Basophils # 0.1 K/mcL (0.0-0.2); Basophils % 0.6 %; Eosinophils # 0.2 K/mcL (0.0-0.6); Eosinophils % 2.3 %; Hematocrit 38.6 % (35.3-44.9); Hemoglobin 12.8 g/dL (11.5-15.4); Immature Granulocytes % 0.5 % (0-4); Lymphocytes # 1.6 K/mcL (0.6-4.6); Lymphocytes % 20.5 %; Mean Corpuscular HGB Conc 33.2 g/dL (31.6-35.5); Mean Corpuscular Volume 93.5 fL (83.0-100.0); Mean Platelet Volume 9.7 fL (9.4-12.4); Monocytes # 0.4 K/mcL (0.0-1.3); Monocytes % 5.3 %; Neutrophils # 5.5 K/mcL (1.6-8.9); Platelet Count 257 K/mcL (140-400); Red Blood Count 4.13 M/mcL (3.82-4.97); Red Cell Distribution Width 13.4 % (11.5-14.5); Segmented Neutrophils % 70.8 %; White Blood Count 7.8 K/mcL (4.3-11.1)
[2019-07-27 20:14] LABS: Activated Partial Thrombo Time 39.6 Seconds (26.0-36.0)
[2019-07-27] MEDS ORDERED: *HR* FentaNYL (PF) 100 MCG/2 ML VIAL IVP ONE (20:22)
[2019-07-27 20:30] LABS: Albumin 4.1 g/dL (3.5-5.7); Albumin/Globulin Ratio 1.5 (1.1-2.2); Bilirubin,Direct 0.1 mg/dL (0.0-0.2); Bilirubin,Indirect 0.2 mg/dL (0.0-1.0); Bilirubin,Total 0.3 mg/dL (0.3-1.0); Globulin 2.7 g/dL (2.4-3.5); Total Protein 6.8 g/dL (6.4-8.9)
[2019-07-27 20:32] LABS: BUN/Creatinine Ratio 10 (6-26); Blood Urea Nitrogen 13 mg/dL (6-20); Calcium 9.7 mg/dL (8.6-10.3); Carbon Dioxide 26 mEq/L (23-29); Chloride 97 mEq/L (98-107); Glucose 103 mg/dL (70-105); Osmolality,Calculated 276 (280-300); Potassium 4.3 mEq/L (3.5-5.1); Sodium 133 mEq/L (136-145); Troponin I < 0.03 ng/mL (< 0.04); eGFR For African Americans 55 (> 60); eGFR For Non-African Americans 46 (> 60)
[2019-07-27 21:07] LABS: Bilirubin,Urine Negative (Negative); Blood,Urine Negative (Negative); Color,Urine Yellow (Yellow); Glucose,Urine (UA) Normal (Normal); Ketones,Urine Negative (Negative); Leukocyte Esterase,Urine Large (Negative); Nitrite,Urine Negative (Negative); Protein,Urine Negative (Neg-Trace); Specific Gravity,Urine 1.013 (1.010-1.025); Urobilinogen,Urine Normal (Normal)
[2019-07-27 21:10] LABS: Bacteria,Urine Moderate per hpf (None-Few); Hyaline Casts,Urine Few per lpf (None-Few); RBC,Urine 0-3 per hpf (0-3); Squamous Epithelial Cell,Urine Many per lpf (None-Few); WBC,Urine 50-100 per hpf (0-3)
[2019-07-27 21:20] LABS: Clarity,Urine Hazy (Clear)
[2019-07-27] MEDS ORDERED: Morphine Sulfate Immed Rel 15 MG TABLET PO STA (22:06)
[2019-07-27] MEDS ORDERED: Furosemide 40 MG in 0.9 % Sodium Chloride 50 ML IV ONE (22:52)
[2019-07-27] MEDS ORDERED: Sulfamethoxazole/Trimeth DS 1 EACH TABLET PO ONE (22:53)
[2019-07-27] MEDS ORDERED: Furosemide 40 MG/4 ML VIAL IVP ONE (23:00)
[2019-07-27] MEDS ORDERED: Naloxone 0.4 MG/ML INJ IVP PRN (23:59)
[2019-07-28] MEDS ORDERED: Benzonatate 100 MG CAPSULE PO PRN (00:07)
[2019-07-28] MEDS ORDERED: hydrOXYzine pamoate 25 MG CAPSULE PO PRN (00:07)
[2019-07-28] MEDS ORDERED: diazePAM 10 MG TABLET PO PRN (00:07)
[2019-07-28] MEDS ORDERED: Ondansetron ODT 4 MG TAB.RAPDIS SL PRN (00:07)
[2019-07-28] MEDS ORDERED: Nystatin POWDER 30 GM BOTTLE TP PRN (00:07)
[2019-07-28] MEDS ORDERED: Budesonide/Formoterol 80/4.5 1 PUFF INH IH SCH (00:15)
[2019-07-28] MEDS ORDERED: ERENUMAB AOOE 70 MG PO SCH (00:15)
[2019-07-28] MEDS: *HR* OxyCODONE/APAP 5/325 TABLET PO PRN ×2 (00:58→16:14)
[2019-07-28 06:13] LABS: Basophils % 0.4 %; Eosinophils % 0.4 %; Hematocrit 40.5 % (35.3-44.9); Hemoglobin 13.9 g/dL (11.5-15.4); Immature Granulocytes % 0.9 % (0-4); Lymphocytes # 0.6 K/mcL (0.6-4.6); Lymphocytes % 7.4 %; Mean Corpuscular HGB Conc 34.3 g/dL (31.6-35.5); Mean Corpuscular Hemoglobin 31.1 pg (28.0-33.3); Mean Corpuscular Volume 90.6 fL (83.0-100.0); Mean Platelet Volume 9.9 fL (9.4-12.4); Monocytes # 0.3 K/mcL (0.0-1.3); Monocytes % 3.7 %; Platelet Count 269 K/mcL (140-400); Red Blood Count 4.47 M/mcL (3.82-4.97); Red Cell Distribution Width 13.5 % (11.5-14.5); Segmented Neutrophils % 87.2 %
[2019-07-28] MEDS ORDERED: Regadenoson 0.4 MG/5 ML SYRINGE IVP ONE (06:24)
[2019-07-28 06:58] LABS: Calcium 9.5 mg/dL (8.6-10.3); Potassium 4.4 mEq/L (3.5-5.1)
[2019-07-28] MEDS: Budesonide/Formoterol 160/4.5 1 PUFF INH IH SCH ×2 (07:38→22:16)
[2019-07-28] MEDS ORDERED: Furosemide 40 MG TABLET PO SCH (09:00)
[2019-07-28] MEDS ORDERED: NON-FORMULARY MEDICATION 1 EACH EACH (Omega-3/Dha/Epa/Fish Oil [Fish Oil 1,000 Mg Softgel] PO SCH (09:00)
[2019-07-28] MEDS ORDERED: amLODIPine 5 MG TABLET PO SCH (09:00)
[2019-07-28] MEDS ORDERED: Metoprolol XL (24 HR) Succ 25 MG TAB.ER.24H PO SCH (09:00)
[2019-07-28] MEDS ORDERED: FLUoxetine 20 MG CAPSULE PO SCH (09:00)
[2019-07-28] MEDS ORDERED: Multivit/Ca/Min/Fe/FA 1 TAB TABLET PO SCH (09:00)
[2019-07-28] MEDS ORDERED: diazePAM 5 MG TABLET PO PRN (09:57)
[2019-07-28] MEDS: Furosemide 40 MG/4 ML VIAL IVP SCH ×2 (10:50→21:44)
[2019-07-28] MEDS: Baclofen 10 MG TABLET PO SCH ×2 (10:51→21:44)
[2019-07-28] MEDS: Apixaban 2.5 MG TABLET PO SCH ×2 (10:51→21:44)
[2019-07-28 20:43] VITALS: BP 106/72
[2019-07-28] MEDS ORDERED: traZODone 50 MG TABLET PO SCH (21:00)
== END 2019-07-28 23:37 | disposition left against medical advice (07) ==
LOC: EMEROOARM 18:57 → 3BNU 18:57 → 2ANU 23:46
PROVIDERS: ADMIT Student in an Organized Health Care Education/Training Program; ATTEND Student in an Organized Health Care Education/Training Program